=== PATIENT | female | born 1995 | race Two or more races ===

== ENCOUNTER 2022-09-21 18:22 | Emergency (ER) | payer SELFPAY ==
[~2022-09-21] VITALS: Ht 157.5 cm; Wt 82.2 kg
[2022-09-21 18:24] VITALS: BP 130/80
== END 2022-09-21 22:46 | disposition left against medical advice (07) ==
LOC: M ED 18:22
DX: Z53.21 Procedure and treatment not carried out due to patient leaving prior to being seen by health care provider (principal)

== ENCOUNTER 2022-10-12 16:43 | Emergency (ER) | payer OTHER, SELFPAY ==
[~2022-10-12] VITALS: Ht 165.1 cm; Wt 80.3 kg
[2022-10-12] MEDS ORDERED: ONDANSETRON 4MG 2ML VIAL IV ONE (17:45)
[2022-10-12] MEDS ORDERED: KETOROLAC 30 MG/ML 1ML VIAL IV ONE (17:45)
[2022-10-12] MEDS ORDERED: NS 1,000 ML IV ONE (17:45)
[2022-10-12 17:52] LABS: BASO % 0.2 % (0.0-1.0); EOS # 0.1 10^3/uL (0.0-0.5); EOS % 1.1 % (0.0-3.0); HEMOGLOBIN 10.7 g/dl (12.0-15.5); LYMPH # 3.9 10^3/uL (1.5-5.0); LYMPH % 40.4 % (24.0-44.0); MEAN CORPUSCULAR HEMOGLOBIN 22.5 pg (27.0-33.0); MEAN CORPUSCULAR HGB CONC 29.7 g/dl (32.0-36.5); MEAN CORPUSCULAR VOLUME 75.8 fl (80.0-96.0); MONO # 0.5 10^3/uL (0.0-0.8); NEUTROPHILS # 5.2 10^3/uL (1.5-8.5); NEUTROPHILS % 53.1 % (36.0-66.0); PLATELET COUNT, AUTOMATED 317 10^3/uL (150-450); RED BLOOD COUNT 4.75 10^6/uL (4.00-5.40); WHITE BLOOD COUNT 9.7 10^3/uL (4.0-10.0)
[2022-10-12 18:05] LABS: INR 0.87
[2022-10-12 18:06] LABS: PARTIAL THROMBOPLASTIN TIME 27.2 SECONDS (24.8-34.2)
[2022-10-12 18:09] LABS: ALBUMIN 3.2 G/DL (3.2-5.2); ALT/SGPT 41 U/L (7.0-40); BILIRUBIN,DIRECT 0.1 MG/DL (<0.4); BILIRUBIN,TOTAL 0.3 MG/DL (0.3-1.2); CK-MB VALUE MASS < 1.0 NG/ML (<3.6); CPK CREATINE PHOSPHOKINASE 51 U/L (34-145); LIPASE 34 U/L (12-53); MB/CK RELATIVE INDEX 1.96 (< OR =4); TOTAL PROTEIN 7.4 G/DL (5.7-8.2)
[2022-10-12] MEDS ORDERED: ISOVUE-370 76% 100ML VIAL As Ordered ONE (18:32)
[2022-10-12] MEDS ORDERED: PANTOPRAZOLE 40MG VIAL IV ONE (18:40)
[2022-10-12 18:41] LABS: BLOOD UREA NITROGEN 14 MG/DL (9-23); CALCIUM LEVEL 8.9 MG/DL (8.5-10.1); CARBON DIOXIDE LEVEL 27 MMOL/L (20-31); CHLORIDE LEVEL 103 MMOL/L (98-107); CREATININE FOR GFR 0.71 MG/DL (0.55-1.30); GLOMERULAR FILTRATION RATE > 60.0 (>60); GLUCOSE, FASTING 110 MG/DL (60-100); POTASSIUM SERUM 3.2 MMOL/L (3.5-5.1); SODIUM LEVEL 140 MMOL/L (136-145)
[2022-10-12 19:37] LABS: CK-MB VALUE MASS < 1.0 NG/ML (<3.6); CPK CREATINE PHOSPHOKINASE 41 U/L (34-145); MB/CK RELATIVE INDEX 2.43 (< OR =4)
[2022-10-12 21:37] LABS: CK-MB VALUE MASS < 1.0 NG/ML (<3.6); CPK CREATINE PHOSPHOKINASE 42 U/L (34-145); MB/CK RELATIVE INDEX 2.38 (< OR =4)
[2022-10-12 23:32] VITALS: BP 169/60
[2022-10-12] MEDS ORDERED: OMEP40CA4 PO (23:34)
== END 2022-10-12 23:45 | disposition home or self-care (01) ==
LOC: M ED 16:43
DX: K21.9 Gastro-esophageal reflux disease without esophagitis (principal); R94.31 Abnormal electrocardiogram [ECG] [EKG]; E66.9 Obesity, unspecified; Z82.49 Family history of ischemic heart disease and other diseases of the circulatory system; Z83.79 Family history of other diseases of the digestive system
CPT/HCPCS: 71046; 71275; 74177; 80047; 80048; 80076; 81000; 82550; 82553; 83690; 84702; 85025; 85610; 85730; 93005; 96374; 96375; 99284; C9113; J1885; J2405